=== PATIENT | female | born 1970 | race Caucasian/White ===

== ENCOUNTER 2017-12-19 08:19 | Day surgery (SDC) | payer BC ==
[~2017-12-19] VITALS: Ht 160 cm; Wt 72.5 kg
[~2017-12-19 08:19] MED LIST: ADVIL PO; IRON325 M1 PO; MEDROXYPROGESTE10 MG PO; PROVERA,CYCRIN10 MG PO
[2017-12-19 09:21] VITALS: BP 111/73
[2017-12-19 11:42] VITALS: BP 115/76
[2017-12-19 12:42] VITALS: BP 123/76
== END 2017-12-19 13:05 | disposition home or self-care (01) ==
LOC: SDC 08:19
PROVIDERS: Obstetrics & Gynecology
PROC: 0U5B8ZZ Destruction of Endometrium, Via Natural or Artificial Opening Endoscopic (ICD-10-PCS; principal; 2017-12-19)
DX: N92.0 Excessive and frequent menstruation with regular cycle (principal); Z88.0 Allergy status to penicillin; Z88.2 Allergy status to sulfonamides
CPT/HCPCS: 80048; 81025; 84702; 85014; 85018; 87641; J1100; J1885; J2405; J3010